=== PATIENT | male | born 1990 | race Caucasian/White ===

== ENCOUNTER 2017-12-14 03:03 | Inpatient (IN) | payer OTHER ==
[2017-12-14] MEDS ORDERED: NORMAL SALINE 1000 ML 1,000 ML IV ONE ×2 (03:13→09:13)
[2017-12-14] MEDS ORDERED: ACTIVATED CHARCOAL 25 GM BOTTLE PO ONE (03:17)
[2017-12-14] MEDS ORDERED: ONDANSETRON HCL INJ/PF 4 MG/2 ML SDV IV ONE (03:17)
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
[2017-12-14 03:34] LABS: ABSOLUTE LYMPHOCYTES (AUTO) 0.8 10^3/uL (0.5-4.7); ABSOLUTE MONOCYTES (AUTO) 0.8 10^3/uL (0.1-1.4); ABSOLUTE NEUT (AUTO) 12.4 10^3/uL (1.7-8.2); BASOPHILS % (AUTO) 0.2 % (0-2); HEMATOCRIT 45.1 % (37.9-51.0); HEMOGLOBIN 15.5 g/dL (13.5-17.0); LYMPHOCYTES % (AUTO) 5.5 % (13-45); MEAN CORPUSCULAR HEMOGLOBIN 30.2 pg (27.0-33.4); MEAN CORPUSCULAR HGB CONC 34.3 g/dL (32.0-36.0); MEAN CORPUSCULAR VOLUME 88 fl (80-97); MONOCYTES % (AUTO) 5.7 % (3-13); PLATELET COUNT 244 10^3/uL (150-450); RED BLOOD COUNT 5.13 10^6/uL (4.35-5.55); RED CELL DISTRIBUTION WIDTH 13.2 % (11.5-14.0); SEGMENTED NEUTROPHILS % (AUTO) 88.6 % (42-78); TOTAL CELLS COUNTED % (AUTO) 100 %
[2017-12-14 03:39] LABS: ALANINE AMINOTRANSFERASE 32 U/L (21-72); ALKALINE PHOSPHATASE 63 U/L (38-126); ANION GAP 17 (5-19); ASPARTATE AMINO TRANSFERASE 71 U/L (17-59); BILIRUBIN,DIRECT 0.3 mg/dL (0.0-0.4); BILIRUBIN,TOTAL 0.5 mg/dL (0.2-1.3); BLOOD UREA NITROGEN 7 mg/dL (7-20); CALCIUM 9.8 mg/dL (8.4-10.2); CARBON DIOXIDE 26 mmol/L (22-30); CHLORIDE 103 mmol/L (98-107); GLUCOSE 96 mg/dL (75-110); SODIUM 145.7 mmol/L (137-145); TOTAL PROTEIN 7.9 g/dL (6.3-8.2)
[2017-12-14 03:49] LABS: ACETAMINOPHEN < 10 ug/mL (10-30); ALCOHOL < 10 mg/dL (NONE DETECTED); SALICYLATE < 1.0 mg/dL (2.0-20.0)
[2017-12-14 05:14] LABS: APPEARANCE,URINE SLIGHTLY-CLOUDY; BILIRUBIN,URINE NEGATIVE (NEGATIVE); COLOR,URINE YELLOW; GLUCOSE, URINE NEGATIVE (NEGATIVE); KETONES,URINE NEGATIVE (NEGATIVE); LEUKOCYTE ESTERASE,URINE NEGATIVE (NEGATIVE); NITRITE,URINE NEGATIVE (NEGATIVE); PROTEIN,URINE 100 mg/dL (NEGATIVE); URINE SPECIFIC GRAVITY 1.013; UROBILINOGEN,URINE NEGATIVE mg/dL (<2.0)
[2017-12-14 05:31] LABS: URINE AMPHETAMINES SCREEN NEGATIVE; URINE BARBITURATES SCREEN NEGATIVE; URINE BENZODIAZEPINES SCREEN NEGATIVE; URINE COCAINE SCREEN NEGATIVE; URINE MARIJUANA (THC) SCREEN UNCONFIRMED POSITIVE; URINE METHADONE SCREEN NEGATIVE; URINE PHENCYCLIDINE SCREEN NEGATIVE
--- NOTE | 2017-12-14 07:45 | EKG REPORT ---
SEVERITY:- BORDERLINE ECG - SINUS TACHYCARDIA PROBABLE LEFT ATRIAL ABNORMALITY : Confirmed by: Liliana Kim 14-Dec-2017 07:43:37
--- NOTE | 2017-12-14 11:00 | ER Document Report ---
Doctor's Note Notes: 12/14/17 10:57 This is a 27-year-old man who presented for evaluation of an intentional overdose. On reevaluation this patient was noted to have an uptrending lithium level, it is increased from 1-3. Contacted [facility] as a case had already been started for this patient. They recommend a repeated 4 hour lithium level, will increase fluids for this patient administer a second liter bolus as well as initiate a rate of 200 mL/h thereafter. Have contacted hospitalist Dr. Dexter Grace who agrees to the admission of this patient at this time. Did specifically question whether or not this patient should be transferred for potential dialysis per [facility] [place] did not recommend such at this time, the patient remains alert oriented and appropriate at this time. We will plan for admission to a monitored bed recheck of lithium level at 1130. We will reassess patient in emergency department and continue to monitor.
[2017-12-14] MEDS: NORMAL SALINE 1000 ML 1,000 ML IV PRN ×2 (11:50→19:59)
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
--- NOTE | 2017-12-14 22:51 | EKG REPORT ---
SEVERITY:- NORMAL ECG - SINUS RHYTHM : Confirmed by: Liliana Kim 14-Dec-2017 22:50:36
--- NOTE | 2017-12-15 08:50 | EKG REPORT ---
SEVERITY:- NORMAL ECG - SINUS RHYTHM : Confirmed by: Liliana Kim 15-Dec-2017 08:50:04
[2017-12-15] MEDS: NORMAL SALINE 1000 ML 1,000 ML IV PRN ×2 (10:12→18:44)
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
[2017-12-16 08:05] LABS: ANION GAP 11 (5-19); BLOOD UREA NITROGEN 7 mg/dL (7-20); CALCIUM 9.1 mg/dL (8.4-10.2); CARBON DIOXIDE 29 mmol/L (22-30); CHLORIDE 104 mmol/L (98-107); GLUCOSE 122 mg/dL (75-110); LITHIUM 0.5 mEq/L (0.6-1.2); POTASSIUM 3.6 mmol/L (3.6-5.0); SODIUM 144.4 mmol/L (137-145)
--- NOTE | 2017-12-16 12:20 | PSYCHOLOGICAL NOTE ---
Psych Note - Psych Note Psych Note: Reason for Consult:Overdose Contact Permissions: Roommates Raji ([phone]) and Vickie Cameron Mom, Hema Dad, pt presents to ed via EMS with C/o possible overdose. pt states he took a handful of medications and does not know how many of each he took. pt took lithium, sertraline, and hydroxyzine, and possible prozine. Clinician conducted check in with patient Clinician attempted to contact patient's mother; left message Behavioral health team attempted to contact roommates; left message Clinician attempted to contact patient's father; left message Medication recommendations per [facility]'s contracted psychiatrist Dr. Rafia TAM are as follows 1. Effexor 37.5 mg twice daily 2. BuSpar 10 mg twice daily 3. Clonidine 0.1 mg nightly Diagnosis: 296.30 (F33.9) major depressive disorder; recurrent, unspecified R/O 309.81 (F43.10) Posttraumatic Stress Disorder Impression/Plan: Patient is recommended for IVC. He admitted to suicide attempt via overdose resulted from the negative interaction between him and his roommates. He discloses chronic suicidal ideation however reports this is his first time attempting to kill himself. Patient currently has no support system and is unable to engage in forward thinking. Once patient is medically cleared , placement will be sought. Consulted with Dr. Nicole regarding the management and care of patient.
[2017-12-16] MEDS: BUSPIRONE HCL 10 MG TABLET PO SCH (18:20)
[2017-12-16] MEDS: VENLAFAXINE HCL 75 MG TABLET PO SCH (18:20)
--- NOTE | 2017-12-16 19:51 | PDOC PROGRESS REPORT ---
Subjective Progress Note for:: 12/16/17 Subjective:: This is a 27-year-old male with past medical history of PTSD as per patient patient was admitted for intentional overdose of sertraline lithium and hydroxyzine. Overnight patient denies any acute events he has been eating both at low appetite patient denies any suicidal ideation currently waiting on psychiatry evaluation. Patient denies any chest pain shortness of breath nausea vomiting abdominal pain lower extremity pain or edema. Reason For Visit: INTENTIONAL OVERDOSE,SUICIDE ATTEMPT Physical Exam Vital Signs: Temp Pulse Resp BP Pulse Ox 98.4 F 77 18 126/75 H 98 12/16/17 15:08 12/16/17 15:08 12/16/17 15:08 12/16/17 15:08 12/16/17 15:08 General appearance: PRESENT: no acute distress, well-developed, well-nourished Head exam: PRESENT: atraumatic, normocephalic Eye exam: PRESENT: conjunctiva pink, EOMI, PERRLA. ABSENT: scleral icterus Ear exam: PRESENT: normal external ear exam Mouth exam: PRESENT: moist, tongue midline Neck exam: ABSENT: carotid bruit, JVD, lymphadenopathy, thyromegaly Respiratory exam: PRESENT: clear to auscultation francisco j. ABSENT: rales, rhonchi, wheezes Cardiovascular exam: PRESENT: RRR. ABSENT: diastolic murmur, rubs, systolic murmur Pulses: PRESENT: normal dorsalis pedis pul Vascular exam: PRESENT: normal capillary refill GI/Abdominal exam: PRESENT: normal bowel sounds, soft. ABSENT: distended, guarding, mass, organolmegaly, rebound, tenderness Rectal exam: PRESENT: deferred Extremities exam: PRESENT: full ROM. ABSENT: calf tenderness, clubbing, pedal edema Neurological exam: PRESENT: alert, awake, oriented to person, oriented to place , oriented to time, oriented to situation, CN II-XII grossly intact. ABSENT: motor sensory deficit Psychiatric exam: PRESENT: appropriate affect, normal mood. ABSENT: homicidal ideation, suicidal ideation Skin exam: PRESENT: dry, intact, warm. ABSENT: cyanosis, rash Assessment & Plan - Diagnosis (1) Suicide attempt Is this a current diagnosis for this admission?: Yes Plan: Psych on board patient denies any suicidal ideation at the moment patient is started on Effexor or BuSpar clonidine. Psych is recommending IVC. Pending final disposition to mentation by psych (2) Polysubstance overdose Is this a current diagnosis for this admission?: Yes Plan: As per patient he has ingested several pills of sertraline with him on hydroxyzine. [place] level 0.4, will some IV fluids. We will monitor vitals.
[2017-12-16] MEDS: CLONIDINE HCL 0.1 MG TABLET PO SCH (22:02)
[2017-12-17] MEDS: VENLAFAXINE HCL 75 MG TABLET PO SCH ×2 (10:59→18:04)
[2017-12-17] MEDS: BUSPIRONE HCL 10 MG TABLET PO SCH ×2 (11:00→18:04)
--- NOTE | 2017-12-17 17:38 | PSYCHOLOGICAL NOTE ---
Psych Note - Psych Note Psych Note: Reason for Consult:Overdose Contact Permissions: Roommates Raji ([phone]) and Vickie Cameron Mom, Hema Dad, pt presents to ed via EMS with C/o possible overdose. pt states he took a handful of medications and does not know how many of each he took. pt took lithium, sertraline, and hydroxyzine, and possible prozine. Clinician conducted check in with patient Clinician attempted to contact patient's mother; left message Behavioral health team attempted to contact roommates; left message Clinician attempted to contact patient's father; left message Medication recommendations per [facility]'s contracted psychiatrist Dr. Rafia TAM are as follows 1. Effexor 37.5 mg twice daily 2. BuSpar 10 mg twice daily 3. Clonidine 0.1 mg nightly Diagnosis: 296.30 (F33.9) major depressive disorder; recurrent, unspecified R/O 309.81 (F43.10) Posttraumatic Stress Disorder Impression/Plan: Patient is recommended to continue under IVC. He admitted to suicide attempt via overdose resulted from the negative interaction between him and his roommates. He discloses chronic suicidal ideation however reports this is his first time attempting to kill himself. Patient currently has no support system and is unable to engage in forward thinking. Placement is being sought. Consulted with Dr. Nicole regarding the management and care of patient.
--- NOTE | 2017-12-17 17:45 | PDOC PROGRESS REPORT ---
Subjective Progress Note for:: 12/17/17 Subjective:: No acute events overnight. Patient has been cooperative with healthcare staff. Reason For Visit: INTENTIONAL OVERDOSE,SUICIDE ATTEMPT Physical Exam Vital Signs: Temp Pulse Resp BP Pulse Ox 98.2 F 88 16 134/77 H 99 12/17/17 16:00 12/17/17 16:00 12/17/17 16:00 12/17/17 16:00 12/17/17 16:00 Intake & Output 12/16/17 12/17/17 12/18/17 06:59 06:59 06:59 Intake Total 640 Balance 640 Weight 72.7 kg General appearance: PRESENT: no acute distress, well-developed, well-nourished Head exam: PRESENT: atraumatic, normocephalic Eye exam: PRESENT: conjunctiva pink, EOMI, PERRLA. ABSENT: scleral icterus Ear exam: PRESENT: normal external ear exam Mouth exam: PRESENT: moist, tongue midline Neck exam: ABSENT: carotid bruit, JVD, lymphadenopathy, thyromegaly Respiratory exam: PRESENT: clear to auscultation francisco j. ABSENT: rales, rhonchi, wheezes Cardiovascular exam: PRESENT: RRR. ABSENT: diastolic murmur, rubs, systolic murmur Pulses: PRESENT: normal dorsalis pedis pul Vascular exam: PRESENT: normal capillary refill GI/Abdominal exam: PRESENT: normal bowel sounds, soft. ABSENT: distended, guarding, mass, organolmegaly, rebound, tenderness Rectal exam: PRESENT: deferred Extremities exam: PRESENT: full ROM. ABSENT: calf tenderness, clubbing, pedal edema Neurological exam: PRESENT: alert, awake, oriented to person, oriented to place , oriented to time, oriented to situation, CN II-XII grossly intact. ABSENT: motor sensory deficit Psychiatric exam: PRESENT: appropriate affect, normal mood. ABSENT: homicidal ideation, suicidal ideation Skin exam: PRESENT: dry, intact, warm. ABSENT: cyanosis, rash Assessment & Plan - Diagnosis (1) Suicide attempt Is this a current diagnosis for this admission?: Yes Plan: Psych on board patient denies any suicidal ideation at the moment patient is started on Effexor or BuSpar clonidine. Psych is recommending IVC. Pending final disposition to mentation by psych. If placement available patient is medically cleared to be transferred. (2) Polysubstance overdose Is this a current diagnosis for this admission?: Yes Plan: As per patient he has ingested several pills of sertraline with him on hydroxyzine. [facility] level 0.2. Supportive care
[2017-12-17] MEDS: CLONIDINE HCL 0.1 MG TABLET PO SCH (23:19)
--- NOTE | 2017-12-18 09:50 | PDOC PROGRESS REPORT ---
Subjective Progress Note for:: 12/18/17 Subjective:: No acute events overnight. Patient has been cooperative with healthcare staff. Reason For Visit: INTENTIONAL OVERDOSE,SUICIDE ATTEMPT Physical Exam Vital Signs: Temp Pulse Resp BP Pulse Ox 98.3 F 75 16 125/80 97 12/18/17 03:30 12/18/17 03:30 12/18/17 03:30 12/18/17 03:30 12/18/17 03:30 Intake & Output 12/17/17 12/18/17 12/19/17 06:59 06:59 06:59 Intake Total 1113 Balance 1113 Weight 72.7 kg 72.8 kg General appearance: PRESENT: no acute distress, well-developed, well-nourished Head exam: PRESENT: atraumatic, normocephalic Eye exam: PRESENT: conjunctiva pink, EOMI, PERRLA. ABSENT: scleral icterus Ear exam: PRESENT: normal external ear exam Mouth exam: PRESENT: moist, tongue midline Neck exam: ABSENT: carotid bruit, JVD, lymphadenopathy, thyromegaly Respiratory exam: PRESENT: clear to auscultation francisco j. ABSENT: rales, rhonchi, wheezes Cardiovascular exam: PRESENT: RRR. ABSENT: diastolic murmur, rubs, systolic murmur Pulses: PRESENT: normal dorsalis pedis pul Vascular exam: PRESENT: normal capillary refill GI/Abdominal exam: PRESENT: normal bowel sounds, soft. ABSENT: distended, guarding, mass, organolmegaly, rebound, tenderness Rectal exam: PRESENT: deferred Extremities exam: PRESENT: full ROM. ABSENT: calf tenderness, clubbing, pedal edema Neurological exam: PRESENT: alert, awake, oriented to person, oriented to place , oriented to time, oriented to situation, CN II-XII grossly intact. ABSENT: motor sensory deficit Psychiatric exam: PRESENT: appropriate affect, normal mood. ABSENT: homicidal ideation, suicidal ideation Skin exam: PRESENT: dry, intact, warm. ABSENT: cyanosis, rash Assessment & Plan - Diagnosis (1) Suicide attempt Is this a current diagnosis for this admission?: Yes Plan: Psych on board patient denies any suicidal ideation at the moment patient is started on Effexor or BuSpar clonidine. Psych is recommending IVC. Pending final disposition to mentation by psych. If placement available patient is medically cleared to be transferred. (2) Polysubstance overdose Is this a current diagnosis for this admission?: Yes Plan: As per patient he has ingested several pills of sertraline with him on hydroxyzine. [place] level 0.2. Supportive care
[2017-12-18] MEDS: BUSPIRONE HCL 10 MG TABLET PO SCH ×2 (10:32→17:20)
[2017-12-18] MEDS: VENLAFAXINE HCL 75 MG TABLET PO SCH ×2 (10:32→17:20)
--- NOTE | 2017-12-18 12:11 | PSYCHOLOGICAL NOTE ---
Psych Note - Psych Note Psych Note: Reason for Consult: intentional overdose pt presents to ed via EMS with C/o possible overdose. pt states he took a handful of medications and does not know how many of each he took. pt took lithium, sertraline, and hydroxyzine, and possible prozine. No medication recommendations are this time due to patient's lithium toxicity Diagnosis 296.30 (F33.9) major depressive disorder; recurrent, unspecified per history provided by patient R/O 309.81 (F43.10) posttraumatic stress disorder Impression/plan: patient is recommended for IVC. Patient presents after significant overdose. Patient confirms he intentionally overdosed with intent to kill himself. Patient is not medically cleared at this time and has been admitted to the floor. Patient will be re-evaluated. Dr. Nicole was consulted on the care and management of this patient;attending physician is in agreement with recommendations and disposition.
[2017-12-18] MEDS: CLONIDINE HCL 0.1 MG TABLET PO SCH (21:10)
[2017-12-19] MEDS: BUSPIRONE HCL 10 MG TABLET PO SCH ×2 (09:37→18:49)
[2017-12-19] MEDS: VENLAFAXINE HCL 75 MG TABLET PO SCH ×2 (09:37→18:49)
--- NOTE | 2017-12-19 14:12 | PDOC PROGRESS REPORT ---
Subjective Progress Note for:: 12/19/17 Subjective:: No acute events overnight. Patient has been cooperative with healthcare staff. Patient stated that overnight he has been having frequent nightmares otherwise denies any suicidal ideation of harm. Patient denies any fever, chills, nausea, vomiting, shortness of breath, chest pain, abdominal, nausea or diarrhea Reason For Visit: INTENTIONAL OVERDOSE,SUICIDE ATTEMPT Physical Exam Vital Signs: Temp Pulse Resp BP Pulse Ox 97.5 F 80 16 97/71 L 99 12/19/17 12:50 12/19/17 12:50 12/19/17 12:50 12/19/17 12:50 12/19/17 12:50 Intake & Output 12/18/17 12/19/17 12/20/17 06:59 06:59 06:59 Intake Total 1113 1765 Balance 1113 1765 Weight 72.8 kg 71.4 kg General appearance: PRESENT: no acute distress, well-developed, well-nourished Head exam: PRESENT: atraumatic, normocephalic Eye exam: PRESENT: conjunctiva pink, EOMI, PERRLA. ABSENT: scleral icterus Ear exam: PRESENT: normal external ear exam Mouth exam: PRESENT: moist, tongue midline Neck exam: ABSENT: carotid bruit, JVD, lymphadenopathy, thyromegaly Respiratory exam: PRESENT: clear to auscultation francisco j. ABSENT: rales, rhonchi, wheezes Cardiovascular exam: PRESENT: RRR. ABSENT: diastolic murmur, rubs, systolic murmur Pulses: PRESENT: normal dorsalis pedis pul Vascular exam: PRESENT: normal capillary refill GI/Abdominal exam: PRESENT: normal bowel sounds, soft. ABSENT: distended, guarding, mass, organolmegaly, rebound, tenderness Rectal exam: PRESENT: deferred Extremities exam: PRESENT: full ROM. ABSENT: calf tenderness, clubbing, pedal edema Neurological exam: PRESENT: alert, awake, oriented to person, oriented to place , oriented to time, oriented to situation, CN II-XII grossly intact. ABSENT: motor sensory deficit Psychiatric exam: PRESENT: appropriate affect, normal mood. ABSENT: homicidal ideation, suicidal ideation Skin exam: PRESENT: dry, intact, warm. ABSENT: cyanosis, rash Assessment & Plan - Diagnosis (1) Suicide attempt Is this a current diagnosis for this admission?: Yes Plan: Psych on board patient denies any suicidal ideation at the moment patient is started on Effexor or BuSpar clonidine. Pending final disposition plan by psych. Patient is medically optimized if he needs to be transferred (2) Polysubstance overdose Is this a current diagnosis for this admission?: Yes Plan: As per patient he has ingested several pills of sertraline with him on hydroxyzine. [place] level 0.2. Supportive care
--- NOTE | 2017-12-19 17:08 | PSYCHOLOGICAL NOTE ---
Psych Note - Psych Note Psych Note: Reason for Consult: Intentional OD,chronic passive SI Contact Permissions: [facility] ([phone]), referral made pt presents to ed via EMS with C/o possible overdose. pt states he took a handful of medications and does not know how many of each he took. pt took lithium, sertraline, and hydroxyzine, and possible prozine. Clinician conducted check in with patient: This Clinician met with patient today for re-evaluation. Patient states that he sometimes thinks about harming himself but came to the "realization that he wants to be here for his dog", so he is unsure of how he would complete the act. Patient states that if he is discharged soon, he plans to stay in a local hotel for week and will pay for it with his credit cards. Patient reported that he has a mental health appointment with Dr. Ly Torres on Monday, December 25, 2017 and he plans to keep that appointment. Patient was given resource information to [facility] and [facility] [employer], a community program that assists Veterans with resources. Patient expressed concern over his dog and getting his things out of his apartment before Thursday, December 22, 2107. Medication recommendations per [facility]'s contracted psychiatrist Dr. Rafia TAM are as follows: Effexor 37.5 mg twice daily BuSpar 10mg twice daily Diagnosis 296.30 (F33.9) major depressive disorder; recurrent, unspecified R/0 309.81 (F43.10) Posttraumatic Stress Disorder Impression/Plan: Patient is cleared from acute psychiatric services. Patient admits to passive suicidal ideation with no plan. Patient appears to have difficulty with chronic thought processes. Patient is now homeless and this Clinician gave him resource information to the local homeless residential. Also, [facility] has been contacted for referral. Clinician has also given him information on the [employer] program that assists veterans with resources. Patient currently has no support system in the area. Consulted with Dr. Nicole regarding the management and care of patient.
[2017-12-19 19:29] VITALS: BP 125/72
--- NOTE | 2017-12-23 15:03 | PDOC DISCHARGE SUMMARY ---
General - Admit/Disc Date/PCP Admission Date/Primary Care Provider: 12/16/17 16:56 Discharge Date: 12/19/17 - Discharge Diagnosis (1) Suicide attempt Is this a current diagnosis for this admission?: Yes Summary: Psych was consulted (Please refer to psych notes).IV fluids was started. Lithuim levels and vitals monitored. (2) Polysubstance overdose Is this a current diagnosis for this admission?: Yes Summary: As above - Additional Information Discharge Diet: As Tolerated Discharge Activity: Activity As Tolerated Prescriptions: Buspirone HCl [Buspar 10 mg Tablet] 10 mg PO BID 30 Days #60 tablet Venlafaxine HCl [Effexor 75 mg Tablet] 37.5 mg PO BID 30 Days #60 tablet Home Medications: Buspirone HCl [Buspar 10 mg Tablet] 10 mg PO BID 30 Days #60 tablet 12/19/17 Venlafaxine HCl [Effexor 75 mg Tablet] 37.5 mg PO BID 30 Days #60 tablet History of Present Illness Patient complains of: Drug Overdose History of Present Illness: MYRA BRITT JR is a 27 year old male with a past medical history of major depression and possible PTSD who was brought in because of multiple drug ingestion. Patient lives with his roommates apparently there was a stressful incident at the apartment complex. Patient refused to disclose the details of the incident at the moment. Patient reportedly ingested half a bottle of his sertraline and handful of his lithium. Patient also took a few pills of hydroxyzine. Patient denies any other complaints. He denies any shortness of breath or chest pain. No nausea or vomiting. No abdominal pain. Hospital Course Hospital Course: Psych was consulted and patient placed on Effexor, Buspar and Clonidine. Pt was discharged home and proper information and resources was provided to him by psych. Physical Exam Vital Signs: Temp Pulse Resp BP Pulse Ox 97.5 F 76 16 125/72 100 12/19/17 19:27 12/19/17 19:27 12/19/17 19:27 12/19/17 19:27 12/19/17 19:27 General appearance: PRESENT: no acute distress, well-developed, well-nourished Head exam: PRESENT: atraumatic, normocephalic Eye exam: PRESENT: conjunctiva pink, EOMI, PERRLA. ABSENT: scleral icterus Ear exam: PRESENT: normal external ear exam Mouth exam: PRESENT: moist, tongue midline Neck exam: ABSENT: carotid bruit, JVD, lymphadenopathy, thyromegaly Respiratory exam: PRESENT: clear to auscultation francisco j. ABSENT: rales, rhonchi, wheezes Cardiovascular exam: PRESENT: RRR. ABSENT: diastolic murmur, rubs, systolic murmur Pulses: PRESENT: normal dorsalis pedis pul Vascular exam: PRESENT: normal capillary refill GI/Abdominal exam: PRESENT: normal bowel sounds, soft. ABSENT: distended, guarding, mass, organolmegaly, rebound, tenderness Rectal exam: PRESENT: deferred Extremities exam: PRESENT: full ROM. ABSENT: calf tenderness, clubbing, pedal edema Neurological exam: PRESENT: alert, awake, oriented to person, oriented to place , oriented to time, oriented to situation, CN II-XII grossly intact. ABSENT: motor sensory deficit Psychiatric exam: PRESENT: appropriate affect, normal mood. ABSENT: homicidal ideation, suicidal ideation Skin exam: PRESENT: dry, intact, warm. ABSENT: cyanosis, rash Qualifiers - * PATIENT BEING DISCHARGED WITH ANY OF THE FOLLOWING DIAGNOSIS: No
== END 2017-12-19 20:22 | disposition home or self-care (01) | DRG 918 ==
LOC: ER 03:03 → EH 17:18 → EEVIPCON 17:18 → 4N 17:56 → OBSVTOIN 12-16 16:56
PROVIDERS: ADMIT Internal Medicine; ATTEND Internal Medicine
DX: T43.592A Poisoning by other antipsychotics and neuroleptics, intentional self-harm, initial encounter (principal); T43.222A Poisoning by selective serotonin reuptake inhibitors, intentional self-harm, initial encounter; F32.9 Major depressive disorder, single episode, unspecified; F43.10 Post-traumatic stress disorder, unspecified; Z63.79 Other stressful life events affecting family and household; Y92.009 Unspecified place in unspecified non-institutional (private) residence as the place of occurrence of the external cause
CPT/HCPCS: 36415; 80048; 80053; 80178; 80307; 81001; 85025; 93005; 93010; 96361; 96374; 99285; G0378; J2405; J3490; J7030